=== PATIENT | male | born 1960 | race African-American/Black ===

== ENCOUNTER → 2016-12-21 | Emergency (ER) | payer MEDICAID, OTHER ==
[~2016-12-21] VITALS: Ht 188 cm; Wt 99.3 kg
[~2016-12-21] MED LIST: Norco 5mg/325mg tab ORAL ONE
[2016-12-21 20:53] VITALS: BP 121/67
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
== END | disposition left against medical advice (07) ==
LOC: EMR 21:18
DX: Z53.21 Procedure and treatment not carried out due to patient leaving prior to being seen by health care provider (principal); I10 Essential (primary) hypertension; J45.909 Unspecified asthma, uncomplicated; E11.9 Type 2 diabetes mellitus without complications
CPT/HCPCS: 99282

== ENCOUNTER 2017-01-24 19:09 | Emergency (ER) | payer MEDICAID, OTHER ==
[~2017-01-24] VITALS: Ht 188 cm; Wt 101.2 kg
[2017-01-24 19:35] VITALS: BP 150/74
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
[2017-01-24 21:12] LABS: MEAN CORPUSCULAR HEMOGLOBIN 34.5 PG (27.0-31.0); MEAN CORPUSCULAR HGB CONC 33.9 G/DL (32.0-36.0); MEAN CORPUSCULAR VOLUME 102 FL (80-99); PLATELET COUNT 98 K/UL (150-450); RED CELL DISTRIBUTION WIDTH 13.4 % (11.6-14.8); WHITE BLOOD COUNT 5.2 K/UL (4.8-10.8)
[2017-01-24 21:16] LABS: BASOPHILS % (AUTO) 1.3 % (0.0-2.0); EOSINOPHILS % (AUTO) 0.5 % (0.0-3.0); LYMPHOCYTES % (AUTO) 26.9 % (20.0-45.0); MONOCYTES % (AUTO) 8.1 % (1.0-10.0); NEUTROPHILS % (AUTO) 63.2 % (45.0-75.0)
[2017-01-24 21:28] LABS: TROPONIN I < 0.30 ng/mL (<=0.30)
[2017-01-24 21:31] LABS: ALANINE AMINOTRANSFERASE 15 U/L (3-41); ALBUMIN/GLOBULIN RATIO 1.1 (1.0-2.7); ANION GAP 11 (5-15); ASPARTATE AMINO TRANSFERASE 15 U/L (5-40); CALCIUM 9.2 mg/dL (8.6-10.2); CARBON DIOXIDE 24 mEQ/L (20-30); CHLORIDE 104 mEQ/L (98-107); CREATININE 1.4 mg/dL (0.7-1.2); GLOMERULAR FILTRATION RATE > 60 mL/min (>60); HEMOLYSIS 1; POTASSIUM 4.1 mEQ/L (3.4-4.9); SODIUM 139 mEQ/L (135-145); TOTAL PROTEIN 7.5 g/dL (6.6-8.7)
[2017-01-24] MEDS ORDERED: TYLENOL EXTRA500 MG ORAL (21:48)
[2017-01-24] MEDS ORDERED: ZOFRAN ODT4 MG ORAL (21:48)
[2017-01-24 22:00] VITALS: BP 140/72
--- NOTE | 2017-01-25 09:55 | Diagnostic Imaging Report ---
Indication: Pain Comparison: None A single view chest radiograph was obtained. Findings: Cardiomediastinal appearance is within normal limits for age. The left hemidiaphragm is slightly elevated. Pulmonary vascularity is appropriate. The diaphragmatic contour is smooth and costophrenic angles are sharp. No pleural effusions are identified. The bones are unremarkable. Impression: Mild elevation of the left hemidiaphragm. Negative study otherwise.
--- NOTE | 2017-01-27 17:53 | Cardiology Report ---
APPROVED REPORT EKG Measurement Heart [id number] Sinus rhythm with 1st degree AV block Septal infarct, age undetermined Abnormal ECG
== END 2017-01-24 22:00 | disposition home or self-care (01) ==
LOC: EMR 20:17
DX: R07.89 Other chest pain (principal); R11.2 Nausea with vomiting, unspecified; M25.512 Pain in left shoulder; I10 Essential (primary) hypertension; E11.9 Type 2 diabetes mellitus without complications; J45.909 Unspecified asthma, uncomplicated
CPT/HCPCS: 36415; 71010; 80053; 82550; 82553; 84484; 85025; 93005; 99284